=== PATIENT | male | born 1990 | race Caucasian/White ===

== ENCOUNTER 2021-03-20 16:01 | Emergency (ER) | payer MEDICAID ==
[~2021-03-20] VITALS: Ht 177.8 cm; Wt 62.6 kg
--- NOTE | 2021-03-20 16:37 | NUR ---
BIBRA FATHER FOR WEAKNESS. PT AWAKE STS "IM HAVING FENTANYL WIDRAWAL". ALSO POSS WOUND INFECTION ON DONALD LOWER LEG. PT AAOX3, RR EVEN & UNLABORED. DENIES CP, SOB, DIZZINESS, N/V AT THIS TIME. AWAITING EVAL BY ERMD/PA. WILL CONT TO MONITOR.
[2021-03-20] MEDS ORDERED: IV NS 0.9% 1,000 ML BAG IV ONE ×2 (17:00→18:30)
[2021-03-20 17:07] LABS: BASOPHILS # (AUTO) 0.1 K/uL (0.0-0.2); BASOPHILS % (AUTO) 0.8 % (0.0-2.0); EOSINOPHILS % (AUTO) 0.9 % (0.0-6.0); HEMATOCRIT 29 % (39-51); HEMOGLOBIN 9.1 g/dL (13.5-17.5); LYMPHOCYTES % (AUTO) 19.7 % (20.0-44.0); MEAN CORPUSCULAR HGB CONC 31 g/dl (31.0-36.0); MEAN CORPUSCULAR VOLUME 73 fL (80-96); MONOCYTES # (AUTO) 0.7 K/uL (0.1-1.30); MONOCYTES % (AUTO) 6.8 % (2.0-12.0); NEUTROPHILS # (AUTO) 7.2 K/uL (1.8-8.9); NEUTROPHILS % (AUTO) 71.8 % (43.0-81.0); PLATELET COUNT (AUTO) 408 K/uL (150-450); RED BLOOD CELL COUNT(AUTO) 3.99 MIL/uL (4.5-6.0)
[2021-03-20 17:21] LABS: CARBON DIOXIDE 27 mmol/L (21-32); CHLORIDE 103 mmol/L (98-107); CREATININE 0.9 mg/dL (0.6-1.3); GLUCOSE 105 mg/dL (74-106); POTASSIUM 3.8 mmol/L (3.5-5.1); SODIUM SERUM 136 mmol/L (136-145); UREA NITROGEN, BLOOD 18 mg/dL (7-18)
[2021-03-20 17:29] LABS: ALANINE AMINOTRANSFERASE 16 U/L (12-78); ALBUMIN 2.3 g/dL (3.4-5.0); ALKALINE PHOSPHATASE 47 U/L (46-116); ASPARTATE AMINOTRANSFERASE 17 U/L (15-37); BILIRUBIN,DIRECT 0.1 mg/dL (0.0-0.2); BILIRUBIN,TOTAL 0.2 mg/dL (0.2-1.0); TOTAL PROTEIN, SERUM 7.6 g/dL (6.4-8.2)
[2021-03-20 17:32] LABS: ACETAMINOPHEN < 2 ug/ml (10-30); ALCOHOL, BLOOD < 3 mg/dL (0-0)
--- NOTE | 2021-03-20 18:01 | NUR ---
COVID SWAB DONE AND SENT TO THE LAB
[2021-03-20] MEDS ORDERED: VANCOMYCIN 1 GM in IV D5W 250 ML IV ONE (18:30)
--- NOTE | 2021-03-20 18:50 | NUR ---
PT ASLEEP WILL OPEN EYES WHEN CALLED BY HIS NAME & WILL GO BACK TO SLEEP. VSS. RR EVEN & UNLABORED. NAD NOTED AT THIS TIME. DAD AT BS & WILL CONT TO MONITOR.
--- NOTE | 2021-03-20 21:28 | NUR ---
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
[2021-03-20] MEDS ORDERED: CEPH500C2 PO (23:02)
--- NOTE | 2021-03-20 23:12 | NUR ---
Patient does not wish to proceed with medical care recommended by Dr. Gunderson. Patient given information related to possible complications, up to and including , which could occur as a result of leaving the hospital at this time. Patient verbalizes understanding of risks involved due to leaving against medical advice. Patient has signed AMA form.
[2021-03-21 01:29] VITALS: BP 111/70
== END 2021-03-20 23:15 | disposition left against medical advice (07) ==
LOC: ER 16:33
DX: R41.82 Altered mental status, unspecified (principal); F19.10 Other psychoactive substance abuse, uncomplicated; L97.929 Non-pressure chronic ulcer of unspecified part of left lower leg with unspecified severity; L97.919 Non-pressure chronic ulcer of unspecified part of right lower leg with unspecified severity; L03.116 Cellulitis of left lower limb; L03.115 Cellulitis of right lower limb; L97.429 Non-pressure chronic ulcer of left heel and midfoot with unspecified severity; E87.2 Acidosis; J32.0 Chronic maxillary sinusitis; Z53.29 Procedure and treatment not carried out because of patient's decision for other reasons
CPT/HCPCS: 36415; 70450; 80048; 80076; 80143; 80320; 83605 ×2; 84484; 85025; 87040 ×2; 87081; 87426; 93005; 93970; 96361; 96365; 99285; C9803; J3370; J7030 ×2; G0480; J7060